=== PATIENT | female | born 1975 | race Caucasian/White ===

== ENCOUNTER 2017-02-02 10:21 | Observation (INO) ==
[2017-02-02] MEDS ORDERED: ASPIRIN 325 MG TABLET PO STA (10:37)
[2017-02-02] MEDS ORDERED: ONDANSETRON 4 MG/2 ML VIAL IV STA (10:37)
--- NOTE | 2017-02-02 10:47 | EKG Report ---
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
[2017-02-02] MEDS ORDERED: ASPIRIN 325 MG TABLET ONE (10:54)
[2017-02-02] MEDS ORDERED: ONDANSETRON 4 MG/2 ML VIAL ONE (10:54)
--- NOTE | 2017-02-02 10:55 | XRay Report ---
XR chest 1V portable Indication: Cardiomegaly Comparison: None. Technique: Portable AP chest was performed. Findings: Heart size is normal. Pulmonary vasculature appears within normal limits. No significant abnormality of the mediastinal contours demonstrated. Lungs are clear. Bones and soft tissues demonstrate no significant abnormalities. Impression: 1. No evidence of acute pathology. No evidence of cardiomegaly. 02/02/2017 10:52 AM PROCEDURE INTERPRETED AT [facility] DEPARTMENT OF RADIOLOGY Final Report Signed by: Dr. Artur Fang
[2017-02-02 10:57] LABS: Basophils # 0.1 10*3/uL (0.0-0.2); Basophils % 0.7 % (0.0-0.8); Eosinophils # 0.2 10*3/uL (0.0-0.87); Eosinophils % 2.3 % (0.00-10.9); Hematocrit 38.6 VOL% (35.7-47.0); Hemoglobin 13.7 GM/DL (12.0-16.0); Immature Granulocytes % 0.3 %; Immature Granulocytes Absolute 0.02 #; Lymphocytes # 2.8 10*3/uL (1.4-4.0); Lymphocytes % 40.7 % (21.3-54.2); Mean Corpuscular HGB Conc 35.5 GM/DL (32-36); Mean Corpuscular Hemoglobin 32 PG (27-34); Mean Corpuscular Volume 89.8 FL (87-102); Mean Platelet Volume 9.7 FL (9.6-12.0); Monocytes # 0.5 10*3/uL (0.11-0.8); Monocytes % 7.8 % (1.7-12.7); Neutrophils # 3.3 10*3/uL (1.4-7.4); Neutrophils % 48.2 % (38.7-73.9); Platelet Count 351 T/CUMM (130-400); Red Cell Distribution Width 12.9 % (9.3-17.3); White Blood Count 6.9 T/CUMM (4-12)
--- NOTE | 2017-02-02 11:00 | CT Report ---
CT brain Indication: Left-sided hemiparesis Comparison: None available Technique: Axial CT imaging of the brain is performed without contrast with 3 mm increments. Findings: No evidence of hemorrhage, mass mass effect midline shift or acute infarct seen. The brain parenchyma attenuation and differentiation appears within normal limits. The ventricles and cisterns are normal in caliber. No cranial or skull base abnormality is identified. Impression: No evidence of abnormality demonstrated. This CT exam was performed using one or more the following dose reduction techniques: Automated exposure control, adjustment of the MA and/or KV according to patient size, or use of iterative reconstruction technique. PROCEDURE INTERPRETED AT [facility] DEPARTMENT OF RADIOLOGY Final Report Signed by: Dr. aSrkis Sung
--- NOTE | 2017-02-02 11:04 | Emergency Department Note ---
Jorge Samayoa Mantricia, am scribing for, and in the presence of, Ko Laughlin MD 10:47. Qian Samayoa Charles R, MD, personally performed the services described in this documentation, ascribed by Reymundo Patel in my presence, and it is both accurate and complete . Arrival - Arrival Chief Complaint: Neuro Stated Complaint: numbness on Lt side ED Nursing Triage Note: c/o lt side of facial numbness and numbness in lt shoulder and lt hand. face started about 0815. 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 Mode of Arrival: Ambulatory Limitations: No Limitations Source: Patient Time Seen by Provider: 02/02/17 10:30 - History of Present Illness HPI Narrative: Pt is a white female arriving to ED with c/o left sided facial numbness that onset 0800 this morning. She reports that the numbness has radiated down her LUE. She reports that she has been seeing her physician regarding this and he was thinking carpal tunnel and then mentioned surgery for her future. She states that the numbness is accompanied with blurry vision bilaterally and a dull headache. Pt has a PMHx of panic attacks and Solorzano's Palsy during 2 years ago. Pt admits to smoking a 1/2 pack of cigarettes a day. No other complaints were reported to ED. Onset (ago): hour(s) Consistency: constant Severity: mild Date of Last Menstrual Period: hyst Allergies/Adverse Reactions: Allergies Allergy/AdvReac Type Severity Reaction Status Date / Time Penicillins Allergy Unknown/Unable Verified 02/02/17 10:25 to obtain Home Medications: Home Medications Medication Instructions Recorded Confirmed Type Cholecalciferol (Vitamin D3) 1,000 unit PO QAM 02/02/17 02/02/17 History [Vitamin D3] Clorazepate [Tranxene] 3.75 mg PO DAILY PRN 02/02/17 02/02/17 History Clorazepate [Tranxene] 7.5 mg PO QAM 02/02/17 02/02/17 History Estradiol [Estradiol 0.05 mg/24 hr 1 patch TRANSDERM TU 02/02/17 02/02/17 History (weekly) Patch] Sertraline [Zoloft] 50 mg PO QAM 02/02/17 02/02/17 History Vitamin B Complex 1 each PO QAM 02/02/17 02/02/17 History buPROPion [Wellbutrin] 75 mg PO QAM 02/02/17 02/02/17 History Review of System - Review of System 12 point system: reviewed and no additional remarkable complaints except as stated - Review of System Constitutional: Absent: chills, diaphoresis, fever Eyes: Present: vision change (blurry vision) Head/Ears/Nose/Throat: Present: other (left sided facial numbness ) Respiratory: Absent: cough Cardiovascular: Absent: chest pain Gastrointestinal: Absent: abdominal pain, nausea, vomiting, diarrhea Musculoskeletal: Present: other (LUE numbness). Absent: arm pain, back pain, leg pain, neck pain Neurological: Present: headache (dull), numbness Medical,Surgical,& Family Hx - Medical History Psychological: History of: Anxiety Disorders - Social History Smoking Status: Smoker, status unknown Frequency of Alcohol Use: None Type of Drug Use: None Exam Vital Signs: Vital Signs Temperature 97.2 F L 02/02/17 10:30 Pulse Rate 72 02/02/17 10:30 Respiratory Rate 18 02/02/17 10:42 Blood Pressure 140/98 02/02/17 10:30 O2 Sat by Pulse Oximetry 96 02/02/17 10:22 - General General appearance: alert, in no apparent distress - Head Head exam: Present: atraumatic, normocephalic, normal inspection - Eye Eye exam: Present: normal appearance, PERRL, EOMI - ENT ENT exam: Present: normal exam, normal oropharynx, mucous membranes moist, TM's normal bilaterally, normal external ear exam - Neck Neck exam: Present: normal inspection, full ROM, trachea midline. Absent: tenderness - Chest Chest inspection: Present: normal inspection, symmetric chest wall rise. Absent : tenderness - Respiratory Respiratory exam: Present: rhonchi (bilat) - Cardiovascular Cardiovascular exam: Present: regular rate, normal rhythm, normal heart sounds - Abdominal Exam Abdominal exam: Present: soft, normal bowel sounds. Absent: distention, tenderness, guarding, rebound - Extremities Exam Extremities exam: Present: normal inspection, full ROM, normal capillary refill. Absent: tenderness, pedal edema - Back Exam Back exam: Present: normal inspection, full ROM. Absent: tenderness - Expanded Neurological Exam Patient oriented to: Present: person, place, time Cranial nerves: EOM function (II, III, IV, ): Normal, facial sensation (V): Abnormal Left, facial palsy (VII): Normal, spinal accessory function (XI): Normal, tongue deviation (XII): Normal Cerebellar function: finger to nose: Normal, heel to dyer: Normal Cerebellar function: normal gait, Romberg normal, normal vibratory/position Upper motor neuron exam: pronator drift: Present on left, Babinski sign: Absent bilaterally Sensory exam upper extremity: light touch: Normal, pin prick: Normal, temperature: Normal Sensory exam lower extremity: light touch: Normal, pin prick: Normal, temperature: Normal, 2 point discrimination: Normal - Psychiatric Psychiatric exam: Present: normal affect, normal mood - Skin Skin exam: Present: warm, dry, intact, normal color Course - Consultations Consultation #1: spoke to Dr gates who agree with our plan the patient symptoms are too minor to give TPA at this time. Patient is a night score of 2 admit patient for strokelike symptoms Time: 11:03 Results - Labs CBC & BMP: 02/02/17 10:47 02/02/17 10:47 Lab Results: I have reviewed the patients labs Labs: Laboratory Tests 02/02/17 02/02/17 02/02/17 10:47 12:21 12:21 Chloride 108 H Urine Urobilinogen < 2.0 H U Benzodiazepines Scrn Positive H Serum Alcohol < 15 L - Diagnostic Findings Procedure: Chest x-ray: report reviewed by me ( No evidence of acute pathology. No evidence of cardiomegaly.), CT: report reviewed by me (Head: No evidence of abnormality demonstrated. ) Disposition Clinical Impression: Transient cerebral ischemia, Left-sided weakness Case discussed with: patient Disposition: Still a Patient Condition: Stable Time of Disposition: 13:45 NIH Stroke Score - Stroke Score Initial Assessment Level of Consciousness: Alert Level of Consciousness Questions: Answers Both Correctly Level of Consciousness Commands: Obeys Both Correctly Best Gaze: Normal Visual Hyde: No Visual Loss Facial Palsy: Normal Motor - Right Arm: No Drift Motor - Left Arm: Drift Motor - Right Leg: No Drift Motor - Left Leg: No Drift Limb Ataxia: Absent Sensory (Pin Prick): Partial Loss Best Language: Normal Dysarthria: Normal Extinction / Inattention (Neglect): No Neglect NIH Stroke Score: 2
[2017-02-02 11:07] LABS: Partial Thromboplastin Time 26.6 SECS (0-40)
[2017-02-02 11:34] LABS: Alanine Aminotransferase 14 U/L (13-56); Albumin 3.8 G/DL (3.4-5.0); Alkaline Phosphatase 74 U/L (45-117); Aspartate Amino Transferase 16 U/L (0-37); Bilirubin,Total < 0.39 MG/DL (0.2-1.0); Blood Urea Nitrogen 15 MG/DL (7-18); Calcium 8.8 MG/DL (8.5-10.1); Glucose 92 MG/DL (74-106); Osmolality,Calculated 277.5 MOS/KG (273-304); Potassium 3.7 MMOL/L (3.5-5.1); Sodium 139 MMOL/L (136-145); Troponin I Only < 0.015 NG/ML (0.00-0.045)
[2017-02-02 12:29] LABS: Apearance,Urine CLEAR (Clear); Bacteria,Urine Occasional /HPF (Few); Bilirubin,Urine Negative (Negative); Blood, Urine Small mg/dL (Negative); Glucose,Urine (UA) Negative (Negative); Ketones,Urine Negative (Negative); Mucus,Urine Occasional /LPF (Occasional); Nitrite,Urine Negative (Negative); Protein,Urine Negative; RBC,Urine 1 /HPF (0-4); Squamous Epithelial Cell,Urine Occasional /HPF (0-10); Urine Color Straw (Yellow); Urine Specific Gravity 1.002 (1.001-1.035); Urine Urobilinogen < 2.0 EU/DL (0.2-1.0); WBC,Urine <1 /HPF (0-6)
[2017-02-02 12:35] LABS: Barbiturates Screen,Urine Negative (Negative); Benzodiazepines Screen,Urine Positive (Negative); Cannabinoid Screen,Urine Negative (Negative); Opiate Screen,Urine Negative (Negative); Phencyclidine Screen,Urine Negative (Negative)
--- NOTE | 2017-02-02 15:57 | Hospitalist History & Physical ---
Assessment and Plan - Time spent with patient Time spent with patient: Greater than 30 minutes (1) Transient cerebral ischemia Status: Acute Assessment and plan: 02/02/17 - Admit with monitored bed. Start ASA, Lovenox. Start statin. Order MRA , MRI, carotid dopplers, Echo and labs. Consult Dr Jurado. Consult PT and OT. Current Visit: Yes (2) Left-sided weakness Status: Acute Current Visit: Yes History of Present Illness Chief complaint: left sided numbness History of present illness: Ms. Luna is a 41 year old white female presented to [facility] ED for further evaluation of left sided facial numbness that started at 0800 a.m. this morning. She reports being at work when she noticed the left side of face feeling "funny" and numb that proceeded to travel to her left shoulder, arm, and hand. PMHx "panic attacks" and Solorzano's Palsy during her (2 years ago but could not remember which side was affected). She reports talking to a physician about numbness in her hand last month, and it was thought possible carpal tunnel syndrome and may need to have surgery if it worsened. She reports smoking 1/2 pack per day. Occasional alcohol use. Denies any drug use. Primary Care physician: Dr Barnard (last seen February 2016) for routine. After discussion with Dr Laughlin in ED and Dr Gamez, it was agreed to admit patient on monitored bed for further evaluation. Home medications will be reviewed and reconciliation to follow. Home Medications Medication Instructions Recorded Confirmed Type Cholecalciferol (Vitamin D3) 1,000 unit PO QAM 02/02/17 02/02/17 History [Vitamin D3] Clorazepate [Tranxene] 3.75 mg PO DAILY PRN 02/02/17 02/02/17 History Clorazepate [Tranxene] 7.5 mg PO QAM 02/02/17 02/02/17 History Estradiol [Estradiol 0.05 mg/24 hr 1 patch TRANSDERM TU 02/02/17 02/02/17 History (weekly) Patch] Sertraline [Zoloft] 50 mg PO QAM 02/02/17 02/02/17 History Vitamin B Complex 1 each PO QAM 02/02/17 02/02/17 History buPROPion [Wellbutrin] 75 mg PO QAM 02/02/17 02/02/17 History Allergies Allergy/AdvReac Type Severity Reaction Status Date / Time Penicillins Allergy Unknown/Unable Verified 02/02/17 10:25 to obtain Medical,Surgical,& Family Hx - Medical History Psychological: History of: Anxiety Disorders - Family History Family History: Reports;: Family Diabetes, Family Hypertension, Family Stroke - Social History Smoking Status: Current every day smoker Have you smoked in the last 12 months: Yes (1/2 pack per day) Frequency of Alcohol Use: None Type of Drug Use: None Marital Status: Lives With:: Spouse Functional capacity: independent ambulation Review of systems: ROS completed and positives and negatives in HPI. Exam - Constitutional Vitals: Period Temp Pulse Resp BP Sys/Castaneda Pulse Ox Last 24 Hr 97.2 F-97.2 F 72-72 18-18 140-140/98-98 96 General appearance: normal weight, no acute distress - Head Head exam: Present: normal inspection - Eye Eye exam: Present: EOMI Pupils: Present: MIKY - Neck Neck exam: Present: normal inspection. Absent: thyromegaly - Respiratory Respiratory exam: Present: clear to auscultation bilaterally. Absent: wheezes - Cardiovascular Cardiovascular exam: Present: regular rate and rhythm - GI/Abdominal GI/Abdominal exam: Present: normal bowel sounds, soft. Absent: tenderness, rebound - Extremities Exam Extremities exam: Present: full ROM. Absent: edema - Neurological Exam Neurological exam: Present: alert, oriented X3, CN II-XII intact - Expanded Neurological Exam Neurological exam: Absent: memory loss-recent event, memory loss-remote event Patient oriented to: Present: person, place, time Cranial nerves: EOM's intact: Normal, facial sensation: Abnormal Left (numbness sensation), tongue deviation: Normal Cerebellar function: finger to nose: Normal Coma Scale Eye Opening: Spontaneous Coma Scale Motor Response: Obeys Commands Coma Scale Verbal Response: Oriented Coma Scale Total: 15 - Psychiatric Psychiatric exam: Present: normal affect, normal mood - Skin Skin exam: Present: normal color, warm, dry Results - Labs CBC & BMP: 02/02/17 10:47 02/02/17 10:47 Lab Results: I have reviewed the past 24 hour labs - EKG EKG results: sinus rhythm (Per Dr Vora ) - Diagnostic Findings Procedure: Chest x-ray: report reviewed by me (no evidence of acute pathology, no evidence of cardiomegaly), CT: report reviewed by me (Head: No evidence of abnormality demonstrated. NO evidence of hemorrage, mass mass effect midline shift or acute infarct see) Quality Measures - Stroke Onset of Symptoms Date: 02/02/17 Onset of Symptoms Time: 09:30 Symptom Onset Unknown: Yes
[2017-02-02] MEDS ORDERED: LABETALOL 20 MG/4 ML SYRINGE IV PRN (16:16)
[2017-02-02] MEDS ORDERED: DOCUSATE SODIUM 100 MG CAPSULE PO PRN (16:24)
[2017-02-02] MEDS ORDERED: ONDANSETRON 4 MG/2 ML VIAL IV PRN (16:24)
[2017-02-02] MEDS ORDERED: ACETAMINOPHEN 325 MG TABLET PO PRN (16:24)
[2017-02-02] MEDS ORDERED: CLORAZEPATE 3.75 MG TABLET PO PRN (16:32)
--- NOTE | 2017-02-02 20:48 | Ultrasound Report ---
Exam:US carotid duplex BI Date:02/02/2017 12:00 AM Indication: Left-sided weakness Color Doppler, wave form analysis, and grayscale analysis of the cervical carotid arteries was performed. There is no significant plaque in either carotid bulb. Waveform analysis shows proper directional flow of the cervical carotid arteries. There is antegrade flow in either vertebral artery. The distal right ICA measures 3.9 mm diameter; the left measures 4.3 mm diameter. There is 0-15% diameter reduction narrowing of either internal carotid artery using indirect NASCET criteria. Ultrasound images were captured and archived. Impression: No hemodynamically significant internal carotid artery stenosis Right Side Flow velocities centimeters per second Common carotid artery: 73 Proximal ICA:88.6 Distal ICA:74.2 External carotid artery:99.0 Vertebral artery:70.3 ICA/CCA ratio:1.2 Left SIde Flow velocities centimeters per second Common carotid artery 81 Proximal ICA:74.2 Distal ICA:99.0 External carotid artery:78.1 Vertebral artery:58.6 ICA/CCA ratio:1.2 Today studies were performed utilizing indirect NASCET criteria PROCEDURE INTERPRETED AT [facility] DEPARTMENT OF RADIOLOGY Final Report Signed by: Dr. Edna Beth
[2017-02-02] MEDS ORDERED: ATORVASTATIN 20 MG TABLET PO SCH (21:00)
[2017-02-02] MEDS ORDERED: ENOXAPARIN 40 MG/0.4 ML SYRINGE SUBCUT SCH (21:00)
[2017-02-03 05:58] LABS: Basophils # 0.1 10*3/uL (0.0-0.2); Basophils % 0.7 % (0.0-0.8); Eosinophils # 0.3 10*3/uL (0.0-0.87); Eosinophils % 3.6 % (0.00-10.9); Hematocrit 37.9 VOL% (35.7-47.0); Hemoglobin 13.2 GM/DL (12.0-16.0); Immature Granulocytes % 0.3 %; Immature Granulocytes Absolute 0.02 #; Lymphocytes # 3.1 10*3/uL (1.4-4.0); Lymphocytes % 41.9 % (21.3-54.2); Mean Corpuscular HGB Conc 34.8 GM/DL (32-36); Mean Corpuscular Hemoglobin 32 PG (27-34); Mean Corpuscular Volume 90.9 FL (87-102); Mean Platelet Volume 10.1 FL (9.6-12.0); Monocytes # 0.6 10*3/uL (0.11-0.8); Monocytes % 8.4 % (1.7-12.7); Neutrophils # 3.4 10*3/uL (1.4-7.4); Neutrophils % 45.1 % (38.7-73.9); Platelet Count 312 T/CUMM (130-400); Red Blood Count 4.17 MC/CUMM (3.8-5.5); White Blood Count 7.4 T/CUMM (4-12)
[2017-02-03 06:13] LABS: Potassium 4.2 MMOL/L (3.5-5.1)
[2017-02-03 06:18] LABS: Risk Ratio 4.7; VLDL CHOLESTEROL 31.8 MG/DL
[2017-02-03] MEDS ORDERED: CHOLECALCIFEROL 1,000 UNIT TABLET PO SCH (09:00)
[2017-02-03] MEDS ORDERED: ASPIRIN 325 MG TABLET PO SCH (09:00)
[2017-02-03] MEDS ORDERED: PANTOPRAZOLE 40 MG TABLET PO SCH (09:00)
[2017-02-03] MEDS ORDERED: buPROPion 75 MG TABLET PO SCH (09:00)
[2017-02-03] MEDS ORDERED: MULTIVITAMIN (BEROCCA) TABLET PO SCH (09:00)
[2017-02-03] MEDS ORDERED: SERTRALINE 50 MG TABLET PO SCH (09:00)
[2017-02-03] MEDS ORDERED: CLORAZEPATE 7.5 MG TABLET PO SCH (09:00)
--- NOTE | 2017-02-03 10:15 | Discharge Summary ---
Hospital Course - Hospital Course Hospital Course: Mrs Luna presented with left face and arm numbness that went into her left thigh also. 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 These symptoms resolved over about 24 hours. She also had a headache. Her stroke workup was negative and she was diagnosed with complicated migraine by Dr Jurado. She will see him in the clinic and also see her PCP. She was advised to stop smoking. - Time spent with patient Time with patient DS: Less than 30 minutes Diagnosis - Discharge Diagnosis (1) Complicated migraine Status: Resolved (2) Left-sided weakness Status: Resolved Specialty Discharge - Follow Up or Referrals Follow up with: Deann PCP [Other] - 02/10/17 10:00 am (DR. BERGMAN) Damian Jurado MD [Physician] - 04/06/17 9:30 am Discharge Plan - Discharge Data Disposition: Disch To Home/Self Care Condition at Discharge: Stable Discharge Diet: diabetic diet, heart healthy Activity: resume usual activities as tolerated - Discharge Medications New Topiramate [Topamax] 25 mg PO DAILY #30 tablet Aspirin 81 mg PO DAILY #100 tab.chew Atorvastatin [Lipitor] 20 mg PO BEDTIME #30 tablet Butalbital/Acet/Caff 50-325-40 [Fioricet 50-325-40 mg Tablet] 1 tablet PO Q6H PRN #20 tablet PRN Reason: headache Continue Sertraline [Zoloft] 50 mg PO QAM Clorazepate [Tranxene] 3.75 mg PO DAILY PRN PRN Reason: Anxiety Clorazepate [Tranxene] 7.5 mg PO QAM Cholecalciferol (Vitamin D3) [Vitamin D3] 1,000 unit PO QAM buPROPion [Wellbutrin] 75 mg PO QAM Vitamin B Complex 1 each PO QAM Discontinued Estradiol [Estradiol 0.05 mg/24 hr (weekly) Patch] 1 patch TRANSDERM TU - Follow Up or Referral Follow Up: Deann PCP [Other] - 02/10/17 10:00 am (DR. BERGMAN) Damian Jurado MD [Physician] - 04/06/17 9:30 am - Forms/Instructions Instructions: Transient Ischemic Attack (DC) Exam - Constitutional Vitals: Period Temp Pulse Resp BP Sys/Castaneda Pulse Ox Last 24 Hr 96.4 F-98.7 F 51-72 18-20 85-140/53-98 94-99 General appearance: normal weight, no acute distress - Head Head exam: Present: normocephalic, atraumatic - Eye Eye exam: Present: EOMI. Absent: scleral icterus Pupils: Present: MIKY - ENT ENT exam: Present: normal oropharynx - Respiratory Respiratory exam: Present: clear to auscultation bilaterally - Cardiovascular Cardiovascular exam: Present: regular rate and rhythm - GI/Abdominal GI/Abdominal exam: Present: normal bowel sounds, soft. Absent: tenderness - Extremities Exam Extremities exam: Absent: edema - Neurological Exam Neurological exam: Present: alert, oriented X3, CN II-XII intact. Absent: motor sensory deficit - Skin Skin exam: Present: warm, dry Discharge Results Procedures and tests throughout hospitalization: Pending Orders 02/03/17 16:21 MR angio head wo con (COW) Routine MR head/brain wo con Routine Labs on day of discharge: Labs from last 24 hours 02/03/17 02/03/17 02/03/17 05:21 05:21 05:21 WBC 7.4 RBC 4.17 Hgb 13.2 Hct 37.9 MCV 90.9 MCH 32 MCHC 34.8 RDW 13.0 Plt Count 312 MPV 10.1 Neut % (Auto) 45.1 Lymph % (Auto) 41.9 [place] % (Auto) 8.4 Eos % (Auto) 3.6 Baso % (Auto) 0.7 Neut # (Auto) 3.4 Lymph # (Auto) 3.1 [place] # (Auto) 0.6 Eos # (Auto) 0.3 Baso # (Auto) 0.1 Immature Gran % 0.3 Nucleated RBC % 0.0 Immature Gran # 0.02 Nucleated RBCs # 0.00 INR PT Patient/Control Mix Circ Anticoag PTT Sodium 143 Potassium 4.2 Chloride 110 H Carbon Dioxide 23 Anion Gap 14.2 BUN 16 Creatinine 0.90 GFR Calculation 79 BUN/Creatinine Ratio 17.00 Glucose 94 POC Glucose Hemoglobin A1c Calculated Osmolality 285.0 Calcium 9.0 Magnesium 2.2 Total Bilirubin AST ALT Alkaline Phosphatase Troponin I Total Protein Albumin Globulin Albumin/Globulin Ratio Triglycerides Cholesterol LDL Cholesterol VLDL Cholesterol HDL Cholesterol Heart Disease Risk Ratio Urine Color Urine Appearance Urine pH Ur Specific [place] Urine Protein Urine Glucose (UA) Urine Ketones Urine Blood Urine Nitrate Urine Bilirubin Urine Urobilinogen Urine Leukocytes Urine RBC Urine WBC Ur Squamous Epith Cells Urine Bacteria Urine Mucus Ur Culture Indicated? Urine Opiates Screen Ur Barbiturates Screen Ur Phencyclidine Scrn U Amphetamine/Methamph U Benzodiazepines Scrn U Cocaine Metab Screen U Cannabinoids Screen Serum Alcohol SHANTI Screen 02/03/17 02/03/17 02/03/17 05:21 05:20 05:20 WBC RBC Hgb Hct MCV MCH MCHC RDW Plt Count MPV Neut % (Auto) Lymph % (Auto) [place] % (Auto) Eos % (Auto) Baso % (Auto) Neut # (Auto) Lymph # (Auto) [place] # (Auto) Eos # (Auto) Baso # (Auto) Immature Gran % Nucleated RBC % Immature Gran # Nucleated RBCs # INR PT Patient/Control Mix Circ Anticoag PTT Sodium Potassium Chloride Carbon Dioxide Anion Gap BUN Creatinine GFR Calculation BUN/Creatinine Ratio Glucose POC Glucose Hemoglobin A1c 5.9 Calculated Osmolality Calcium Magnesium Total Bilirubin AST ALT Alkaline Phosphatase Troponin I Total Protein Albumin Globulin Albumin/Globulin Ratio Triglycerides 159 H Cholesterol 174 LDL Cholesterol 108.0 VLDL Cholesterol 31.8 HDL Cholesterol 37 L Heart Disease Risk Ratio 4.70 Urine Color Urine Appearance Urine pH Ur Specific [place] Urine Protein Urine Glucose (UA) Urine Ketones Urine Blood Urine Nitrate Urine Bilirubin Urine Urobilinogen Urine Leukocytes Urine RBC Urine WBC Ur Squamous Epith Cells Urine Bacteria Urine Mucus Ur Culture Indicated? Urine Opiates Screen Ur Barbiturates Screen Ur Phencyclidine Scrn U Amphetamine/Methamph U Benzodiazepines Scrn U Cocaine Metab Screen U Cannabinoids Screen Serum Alcohol SHANTI Screen Negative (<1:160) 02/03/17 02/02/17 02/02/17 05:20 19:29 12:21 WBC RBC Hgb Hct MCV MCH MCHC RDW Plt Count MPV Neut % (Auto) Lymph % (Auto) [place] % (Auto) Eos % (Auto) Baso % (Auto) Neut # (Auto) Lymph # (Auto) [place] # (Auto) Eos # (Auto) Baso # (Auto) Immature Gran % Nucleated RBC % Immature Gran # Nucleated RBCs # INR PT Patient/Control Mix Circ Anticoag PTT 26.4 Sodium Potassium Chloride Carbon Dioxide Anion Gap BUN Creatinine GFR Calculation BUN/Creatinine Ratio Glucose POC Glucose 109 H Hemoglobin A1c Calculated Osmolality Calcium Magnesium Total Bilirubin AST ALT Alkaline Phosphatase Troponin I Total Protein Albumin Globulin Albumin/Globulin Ratio Triglycerides Cholesterol LDL Cholesterol VLDL Cholesterol HDL Cholesterol Heart Disease Risk Ratio Urine Color Urine Appearance Urine pH Ur Specific [place] Urine Protein Urine Glucose (UA) Urine Ketones Urine Blood Urine Nitrate Urine Bilirubin Urine Urobilinogen Urine Leukocytes Urine RBC Urine WBC Ur Squamous Epith Cells Urine Bacteria Urine Mucus Ur Culture Indicated? Urine Opiates Screen Negative Ur Barbiturates Screen Negative Ur Phencyclidine Scrn Negative U Amphetamine/Methamph Negative U Benzodiazepines Scrn Positive H U Cocaine Metab Screen Negative U Cannabinoids Screen Negative Serum Alcohol SHANTI Screen 02/02/17 02/02/17 02/02/17 12:21 10:47 10:47 WBC RBC Hgb Hct MCV MCH MCHC RDW Plt Count MPV Neut % (Auto) Lymph % (Auto) [place] % (Auto) Eos % (Auto) Baso % (Auto) Neut # (Auto) Lymph # (Auto) [place] # (Auto) Eos # (Auto) Baso # (Auto) Immature Gran % Nucleated RBC % Immature Gran # Nucleated RBCs # INR 1.0 PT Patient/Control Mix 10.0 Circ Anticoag PTT 26.6 Sodium 139 Potassium 3.7 Chloride 108 H Carbon Dioxide 25 Anion Gap 9.7 BUN 15 Creatinine 0.90 GFR Calculation 78 BUN/Creatinine Ratio 16.00 Glucose 92 POC Glucose Hemoglobin A1c Calculated Osmolality 277.5 Calcium 8.8 Magnesium Total Bilirubin < 0.39 AST 16 ALT 14 Alkaline Phosphatase 74 Troponin I < 0.015 Total Protein 7.0 Albumin 3.8 Globulin 3.2 Albumin/Globulin Ratio 1.1 Triglycerides Cholesterol LDL Cholesterol VLDL Cholesterol HDL Cholesterol Heart Disease Risk Ratio Urine Color Straw Urine Appearance Clear Urine pH 6.0 Ur Specific [place] 1.002 Urine Protein Negative Urine Glucose (UA) Negative Urine Ketones Negative Urine Blood Small Urine Nitrate Negative Urine Bilirubin Negative Urine Urobilinogen < 2.0 H Urine Leukocytes Negative Urine RBC 1 Urine WBC <1 Ur Squamous Epith Cells Occasional Urine Bacteria Occasional Urine Mucus Occasional Ur Culture Indicated? Not indicated Urine Opiates Screen Ur Barbiturates Screen Ur Phencyclidine Scrn U Amphetamine/Methamph U Benzodiazepines Scrn U Cocaine Metab Screen U Cannabinoids Screen Serum Alcohol < 15 L SHANTI Screen 02/02/17 10:47 WBC 6.9 RBC 4.30 Hgb 13.7 Hct 38.6 MCV 89.8 MCH 32 MCHC 35.5 RDW 12.9 Plt Count 351 MPV 9.7 Neut % (Auto) 48.2 Lymph % (Auto) 40.7 [place] % (Auto) 7.8 Eos % (Auto) 2.3 Baso % (Auto) 0.7 Neut # (Auto) 3.3 Lymph # (Auto) 2.8 [place] # (Auto) 0.5 Eos # (Auto) 0.2 Baso # (Auto) 0.1 Immature Gran % 0.3 Nucleated RBC % 0.0 Immature Gran # 0.02 Nucleated RBCs # 0.00 INR PT Patient/Control Mix Circ Anticoag PTT Sodium Potassium Chloride Carbon Dioxide Anion Gap BUN Creatinine GFR Calculation BUN/Creatinine Ratio Glucose POC Glucose Hemoglobin A1c Calculated Osmolality Calcium Magnesium Total Bilirubin AST ALT Alkaline Phosphatase Troponin I Total Protein Albumin Globulin Albumin/Globulin Ratio Triglycerides Cholesterol LDL Cholesterol VLDL Cholesterol HDL Cholesterol Heart Disease Risk Ratio Urine Color Urine Appearance Urine pH Ur Specific [place] Urine Protein Urine Glucose (UA) Urine Ketones Urine Blood Urine Nitrate Urine Bilirubin Urine Urobilinogen Urine Leukocytes Urine RBC Urine WBC Ur Squamous Epith Cells Urine Bacteria Urine Mucus Ur Culture Indicated? Urine Opiates Screen Ur Barbiturates Screen Ur Phencyclidine Scrn U Amphetamine/Methamph U Benzodiazepines Scrn U Cocaine Metab Screen U Cannabinoids Screen Serum Alcohol SHANTI Screen DS: Provider Date of admission: 02/02/17 15:34 Primary care physician: . No PCP Attending physician on admission: Pilar Gamez MD Consults: 02/02/17 16:16 Consult to Case Mgmt/Social Srvs [CONS] Routine Reason for Case Mgmt/Social Srvs: Discharge Planning Consult to Occupational Therapy [CONS] Routine Reason for Occupational Therapy: Evaluate and Treat Consult Comment: Stroke Consult to Physical Therapy [CONS] Routine Reason for Physical Therapy: Evaluate and Treat Consult Comment: stroke 02/02/17 16:23 Consult to Physician [CONS] Routine Comment: Consulting Provider: Damian Jurado When should Consulting Provider be notified: Now Consult to Specialist Group: Neurology Person Notified: Date Notified: 02/02/17 Time Notified: 17:45 Consult Notification Comment: told me call in his office in am for consultation left message w/office at 0845 02/02/17 17:44 Consult to Physician [CONS] Routine Comment: Consulting Provider: Discharging clinician: Pilar Gamez MD
--- NOTE | 2017-02-03 11:35 | Magnetic Resonance Report ---
Exam: MR head/brain wo con Date: 02/03/2017 Comparison: None Indication: Left-sided numbness Technical: 1.2 Becky magnet Axial T1 pre-and ADC, DWI, FLAIR, gradient echo and FSE T2 Sagittal T1 precontrast, FLAIR Coronal FSE T2 Contrast:0 cc Dotarem Findings: Exam reveals no acute ADC/ diffusion imaging abnormality. The brainstem, cerebellum exhibit normal signal characteristics. The cerebral hemispheres exhibit normal signal characteristics. The corpus callosum is unremarkable. The seventh and eighth cranial nerves and cerebral pontine angles are intact. The pituitary gland, infundibulum and optic chiasm are intact. The paranasal sinuses exhibit minimal inflammation in the ethmoid sinuses. The remaining paranasal sinuses are unremarkable.. The mastoid sinuses are unremarkable. The globes and intra-and extraconal spaces are unremarkable. Impression: 1. Minimal inflammation ethmoid air cells. 2. No acute hemorrhage, infarction or mass effect. PROCEDURE INTERPRETED AT [facility] DEPARTMENT OF RADIOLOGY Final Report Signed by: Dr. Bryn Pope
--- NOTE | 2017-02-03 11:37 | Magnetic Resonance Report ---
Exam: MR angio head wo kush (EMILY) Date: 02/03/2017 Indication: Left-sided numbness Comparison: Routine brain MRI and CT Technical 1.2 Becky 3-D slab and 3-D reproduction images available for review without gadolinium enhancement. Findings: The A1 and A2 segments are unremarkable. The M1 and M2 bifurcation trifurcation regions are intact. The posterior cerebral P1 and P2 segments are unremarkable. The posterior communicating arteries or not clearly demonstrated on the right. There is faint visualization of the left. The anterior communicating artery is poorly demonstrated. The basilar artery and internal carotid arteries and proximal vertebral arteries are patent Impression: 1. No high-grade stenosis or occlusions present. 2. No obvious aneurysm noted. PROCEDURE INTERPRETED AT [facility] DEPARTMENT OF RADIOLOGY Final Report Signed by: Dr. Bryn Pope
[2017-02-03] MEDS ORDERED: DEXTROSE 50% 25 GM/50 ML VIAL IV PRN (14:52)
[2017-02-03] MEDS ORDERED: GLUCAGON 1 MG VIAL IM PRN (14:52)
[2017-02-03 16:08] VITALS: BP 101/62
[2017-02-03] MEDS ORDERED: INSULIN LISPRO 100 UNIT/ML SUBCUT SCH (16:30)
--- NOTE | 2017-02-03 16:34 | Neurology Consult Note ---
History of Present Illness History of present illness: Ms. Luna is a 41 year old right-handed white lady with past medical history significant for smoking, anxiety admitted to the hospital with acute onset of left-sided numbness and tingling. Patient reported that she had a dull headache all day yesterday and then all of a sudden she started having some numbness and tingling started in the far right arm and leg. It lasted for couple of hours then resolved. She also had a history of migraine headaches. Headache frequency is 2-3 per week. Usually had it is not associated with photophobia or phonophobia. No nausea reported either. Symptoms have resolved completely. Patient does smoke a pack per day. Denies alcoholism. MRI of the brain revealed no acute abnormalities Home Medications Medication Instructions Recorded Confirmed Type Cholecalciferol (Vitamin D3) 1,000 unit PO QAM 02/02/17 02/02/17 History [Vitamin D3] Clorazepate [Tranxene] 3.75 mg PO DAILY PRN 02/02/17 02/02/17 History Clorazepate [Tranxene] 7.5 mg PO QAM 02/02/17 02/02/17 History Sertraline [Zoloft] 50 mg PO QAM 02/02/17 02/02/17 History Vitamin B Complex 1 each PO QAM 02/02/17 02/02/17 History buPROPion [Wellbutrin] 75 mg PO QAM 02/02/17 02/02/17 History Aspirin 81 mg PO DAILY #100 tab.chew 02/03/17 Rx Atorvastatin [Lipitor] 20 mg PO BEDTIME #30 tablet 02/03/17 Rx Allergies Allergy/AdvReac Type Severity Reaction Status Date / Time Penicillins Allergy Unknown/Unable Verified 02/02/17 10:25 to obtain 12 point system: reviewed and no additional remarkable complaints except as stated Medical,Surgical,& Family Hx - Medical History Psychological: History of: Anxiety Disorders - Family History Family History: Reports;: Family Cancer (FATHER- LUNG CA), Family Diabetes, Family Hypertension (HYPERTENSION), Family Stroke (SISTER) - Social History Smoking Status: Smoker, status unknown Frequency of Alcohol Use: None Type of Drug Use: None Exam - Constitutional Vitals: Period Temp Pulse Resp BP Sys/Castaneda Pulse Ox Last 24 Hr 96.4 F-98.7 F 51-64 16-20 85-112/53-77 93-99 Exam: GENERAL: Patient is in no acute distress. NECK: Neck is supple. There is no JVD. No carotid bruits present. No thyroid masses. CVS: First and second heart sounds are normal. There is no S3 present. Regular rate and rhythm. RESPIRATORY: Lungs are clear to auscultation without any rales or rhonchi. ABDOMEN: Soft and non-tender. Bowel sounds are present. There is no hepatosplenomegaly. EXT: There is no palpable edema. Peripheral pulses are present. Skin: No rashes Central Nervous system: General: Alert, awake and Oriented x 3 Speech: Fluent Comprehension: Intact and normal Facial expressions: Normal Cranial Nerves: CN1/Olfactory: Normal CN II/ Optic: Normal, Visual Hyde unreliable CN III, and : MIKY & EOMI CN V: Normal & intact CN VII: face is symmetric CNVIII: Normal CN XI/X/XI/XII: Intact and Normal Motor: Bulk and Tone is normal. Strength in the right 5/5 Strength in the left 5/5 Sensory: Grossly intact for all the modalities of PP, LT and temp sense Reflexes: 1+ and symmetrical Cerebellar function: Normal finger to nose and heel to dyer testing. Toes: Equivocal Gait: Normal heel to heel and toe to toe and tandem walk. Results - Labs CBC & BMP: 02/03/17 05:21 02/03/17 05:21 Assessment and Plan (1) Complicated migraine Status: Acute Assessment and plan: Add Topamax 25 mg p.o. daily Fioricet 1 tablet every 4 to every 6 as needed Follow-up in 4 weeks Current Visit: Yes Specialty Discharge - Follow Up or Referrals Follow up with: Your, PCP [Other] - 02/10/17 10:00 am (DR. BERGMAN) Damian Jurado MD [Physician] - 1 Month
[2017-02-03] MEDS ORDERED: BUTALBITAL/ACETAMIN/CAFFEINE 50-325-40 MG TABLET PO PRN (16:42)
--- NOTE | 2017-02-03 18:14 | ECHO Report ---
Aleyda Luna Exam Date: 02/03/2017 08:01 Referring Physician: Technologist: Alma Su LRNOY Age: 41 Ht (in): 62 Wt (lb): 147 Gender: F Exam Location: [facility] Echo Indications: CVA, Lt. sided weakness, smoker BP: 85 / 54 HR: 56 Rhythm: Sinus Technical Quality: Technically difficult study IMPRESSIONS Normal left ventricular size and systolic function, left ventricular ejection fraction is estimated at 55 %. Diastolic parameters are most consistent with grade 2 diastolic dysfunction or pseudonormalization. Mild mitral regurgitation Mild tricuspid regurgitation with right ventricular systolic pressure estimated to be 26 mmHg plus the right atrial pressure MEASUREMENTS (Male / Female) Normal Values 2D ECHO LV Diastolic Diameter PLAX 3.8 cm 4.2 - 5.9 / 3.9 - 5.3 cm LV Systolic Diameter PLAX 2.4 cm LV Fractional Shortening PLAX 36.2 % IVS Diastolic Thickness 0.8 cm 0.6 - 1.0 / 0.6 - 0.9 cm LVPW Diastolic Thickness 0.9 cm 0.6 - 1.0 / 0.6 - 0.9 cm Aortic Root Diameter 2.1 cm LA Systolic Diameter LX 3.0 cm 3.0 - 4.0 / 2.7 - 3.8 cm DOPPLER TR Peak Velocity 255.0 cm/s TR Peak Gradient 26.0 mmHg FINDINGS Left Ventricle Normal left ventricular size and systolic function, left ventricular ejection fraction is estimated at 55 %. There is no regional wall motion abnormality. Diastolic parameters are most consistent with grade 2 diastolic dysfunction or pseudonormalization. Right Ventricle Mildly increased right ventricular size. Right Atrium The right atrium is mildly enlarged. Left Atrium Normal left atrial size. Mitral Valve Morphologically normal mitral valve. Mild mitral valve regurgitation. Aortic Valve The aortic valve is trileaflet, delicate and has normal motion. Tricuspid Valve Morphologically normal tricuspid valve. Tricuspid regurgitation velocities suggest a RVSP of 26.0 mmHg + RAP. Trace tricuspid valve regurgitation. Pulmonic Valve Morphologically normal pulmonic valve. Pericardium No pericardial effusion. Aorta Normal size aortic root and proximal ascending aorta. Danyell Vora (Electronically Signed) Final Date: 03 February 2017 18:13
[2017-02-03] MEDS ORDERED: TOPIRAMATE 25 MG TABLET PO SCH (21:00)
== END 2017-02-03 18:18 | disposition home or self-care (01) ==
LOC: N.ED 10:21 → N.EDINP 15:34 → INTOOBSV 15:34 → N.TELES 17:10
PROVIDERS: ADMIT Internal Medicine; ATTEND Internal Medicine